=== PATIENT | female | born 1940 | race Caucasian/White ===

== ENCOUNTER 2023-12-23 21:40 | Emergency (ER) | payer OTHER ==
[~2023-12-23] VITALS: Ht 160 cm; Wt 63.5 kg
--- NOTE | 2023-12-23 21:46 | NUR ---
PT BROUGHT TO BED 4 VIA WHEELCHAIR
--- NOTE | 2023-12-23 21:47 | NUR ---
Patient being evaluated by physician at bedside.
[2023-12-23 21:51] VITALS: BP 185/79; PULSE 93; RESP 20; TEMP 99.3; O2SAT 97
[2023-12-23] MEDS ORDERED: GLUCAGON 1 MG VIAL ONE (21:53)
[2023-12-23] MEDS: DEXTROSE 50% 50 ML SYR IVP ONE (22:03)
[2023-12-23] MEDS: GLUCAGON 1 MG VIAL IM ONE (22:03)
[2023-12-23 22:11] LABS: BASOPHILS % (AUTO) 0.1 % (0.0-2.0); EOSINOPHILS % (AUTO) 0.5 % (0.0-4.0); HEMATOCRIT 36.1 % (36-48); HEMOGLOBIN 11.7 g/dL (12.0-16.0); LYMPHOCYTES # (AUTO) 3.1 K/uL (2.5-16.5); LYMPHOCYTES % (AUTO) 32.6 % (20.5-51.1); MEAN CORPUSCULAR HEMOGLOBIN 28 pg (27-31); MEAN CORPUSCULAR HGB CONC 32 g/dL (33-37); MEAN CORPUSCULAR VOLUME 86.1 fL (80-94); MONOCYTES # (AUTO) 0.7 K/uL (0.8-1.0); MONOCYTES % (AUTO) 7.6 % (1.7-9.3); NEUTROPHILS # (AUTO) 5.7 K/uL (1.8-7.7); NEUTROPHILS % (AUTO) 59.2 % (42.2-75.2); PLATELET COUNT (AUTO) 290 K/uL (140-450); RED CELL DISTRIBUTION WIDTH 15.1 % (11.6-13.7); WHITE BLOOD COUNT (AUTO) 9.6 K/uL (4.8-10.8)
[2023-12-23 22:18] LABS: APPEARANCE,URINE CLEAR (CLEAR); BILIRUBIN,URINE NEGATIVE (NEGATIVE); BLOOD, URINE NEGATIVE (NEGATIVE); COLOR,URINE YELLOW (YELLOW); LEUKOCYTE ESTERASE ,URINE TRACE (NEGATIVE); NITRITE, URINE NEGATIVE (NEGATIVE); PROTEIN,URINE NEGATIVE (NEGATIVE); UGLUCOSE NEGATIVE (NEGATIVE); UROBILINOGEN,URINE 0.2 EU/dL (0.2 - 1)
[2023-12-23 22:28] LABS: RBC,URINE 0-5 /HPF (0-5)
--- NOTE | 2023-12-23 22:28 | NUR ---
xray at bedside
[2023-12-23 22:29] LABS: BACTERIA,URINE FEW /HPF (None Seen); MUCUS,URINE 1+ /LPF (None Seen); SQUAMOUS EPITHELIAL CELL,UR 0-3 (FEW) /LPF (0-3 (FEW))
[2023-12-23 22:29] LABS: PARTIAL THROMBOPLASTIN TIME 24.1 secs (22-35.6); PROTHROMBIN TIME 10.5 secs (10.8-13.4)
--- NOTE | 2023-12-23 22:30 | NUR ---
repeat accu check 284
--- NOTE | 2023-12-23 22:31 | NUR ---
patient is on hospital gown, skin intact, iv label 18G RAC 12/23/2023. on awake overnight monitor. patient appeared comfortable w/o any complaint
[2023-12-23 22:38] LABS: ANION GAP 14.2 (8-16); CARBON DIOXIDE 27.2 mmol/L (21-32); CHLORIDE 101 mmol/L (98-107); CREATININE 0.9 mg/dL (0.6-1.3); LACTIC ACID 2.8 mmol/L (0.4-2.0); POTASSIUM 3.4 mmol/L (3.5-5.1); SODIUM SERUM 139 mmol/L (136-145); UREA NITROGEN, BLOOD 12 mg/dL (7-18)
--- NOTE | 2023-12-23 22:38 | NUR ---
lactic acid 2.8, noted
[2023-12-23 22:39] LABS: GLUCOSE 41 mg/dL (74-106)
[2023-12-23 22:41] LABS: ALANINE AMINOTRANSFERASE 29 U/L (12-78); ALBUMIN 4.3 g/dL (3.4-5.0); ALKALINE PHOSPHATASE 83 U/L (50-136); ASPARTATE AMINOTRANSFERASE 23 U/L (15-37); BILIRUBIN,DIRECT 0.2 mg/dL (0.0-0.3); CREATINE KINASE, TOTAL 39 U/L (26-192); TOTAL BILIRUBIN 0.4 mg/dL (0.0-1.0); TOTAL PROTEIN, SERUM 8.5 g/dL (6.4-8.2)
[2023-12-23] MEDS: NACL 0.9% 1,000 ML IV ONE (22:43)
[2023-12-23] MEDS ORDERED: cefTRIAXone 1,000 MG VIAL ONE (22:45)
[2023-12-23] MEDS ORDERED: CALC-577 PO (23:01)
[2023-12-23] MEDS ORDERED: ASPI-1822 PO (23:01)
[2023-12-23] MEDS ORDERED: LOSA25TA43 PO (23:01)
[2023-12-23] MEDS ORDERED: VITD400 PO (23:01)
[2023-12-23] MEDS ORDERED: METF-346 PO (23:01)
[2023-12-23] MEDS ORDERED: DONE10TA10 PO (23:01)
[2023-12-23] MEDS ORDERED: ATOR20TA PO (23:01)
[2023-12-23] MEDS ORDERED: FOS70 PO (23:01)
--- NOTE | 2023-12-23 23:11 | NUR ---
patient tolerated well to IV abx & 0.9NS bolus IV.
[2023-12-23 23:57] VITALS: BP 168/78; PULSE 76; RESP 16; TEMP 98.2; O2SAT 98
--- NOTE | 2023-12-24 00:02 | NUR ---
repeat lactic acid drawn and sent to lab
[2023-12-24] MEDS ORDERED: CEPH-588 PO (00:30)
--- NOTE | 2023-12-24 00:38 | NUR ---
Written and verbal after care instructions given and explained. Patient alert, oriented and verbalized understanding of instructions. Wheel Chair Assisted with by caregiver. All questions addressed prior to discharge. ID band removed. Patient advised to follow up with PMD. Rx given. Patient educated on indication of medication including possible reaction and side effects. Opportunity to ask questions provided and answered.
== END 2023-12-24 00:38 | disposition home or self-care (01) ==
LOC: MED 21:40
DX: N39.0 Urinary tract infection, site not specified (principal); E11.9 Type 2 diabetes mellitus without complications; Z79.84 Long term (current) use of oral hypoglycemic drugs; Z79.899 Other long term (current) drug therapy
CPT/HCPCS: 36415; 71045; 80048; 80076; 81001; 82550; 82948; 83605; 84484; 85025; 85610; 85730; 87040; 87086; 93005; 96365; 96372; 96375; 99285; J0696; J1610; J7030